=== PATIENT | male | born 1990 | race African-American/Black ===

== ENCOUNTER 2020-09-14 10:45 | Emergency (ER) | payer MEDICAID, OTHER ==
[~2020-09-14] VITALS: Ht 172.7 cm; Wt 104.8 kg
--- NOTE | 2020-09-14 11:09 | NUR ---
PT WALKED BACK FROM TRIAGE WITH CHIEF COMPLAINT OF "DRANK TOO MUCH AND I NEED AN IV"
[2020-09-14] MEDS ORDERED: ONDANSETRON 2MG/ML, 2ML ONE (11:23)
[2020-09-14] MEDS ORDERED: FAMOTIDINE 20 MG/2 ML ONE (11:23)
[2020-09-14] MEDS ORDERED: KETOROLAC 30 MG/1 ML ONE (11:23)
[2020-09-14] MEDS ORDERED: ONDANSETRON 2MG/ML, 2ML IVPush ONE (11:30)
[2020-09-14] MEDS ORDERED: SODIUM CHLORIDE 0.9% 1,000ML IVBOLUS ONE (11:30)
[2020-09-14] MEDS ORDERED: SODIUM CHLORIDE FLUSH 10ML SYR IVF ONE (11:30)
[2020-09-14] MEDS ORDERED: KETOROLAC 30 MG/1 ML IVPush ONE (11:30)
[2020-09-14] MEDS ORDERED: FAMOTIDINE 20 MG/2 ML IVPush ONE (11:30)
[2020-09-14 11:32] VITALS: BP 146/75
[2020-09-14 11:33] LABS: ALBUMIN 4.1 g/dL (3.4-5.0); ANION GAP 11 mmol/L (5-15); CALCIUM 8.9 mg/dL (8.5-10.1); CHLORIDE 108 mmol/L (98-107)
[2020-09-14 11:34] LABS: BASOPHILS % (AUTO) 1 % (0-1); EOSINOPHILS % (AUTO) 1 % (1-7); LYMPHOCYTES % (AUTO) 27 % (22-44); MEAN CORPUSCULAR HEMOGLOBIN 28.3 pg (27.5-34.5); MEAN CORPUSCULAR HGB CONC 33.7 g/dL (33.2-36.2); MEAN PLATELET VOLUME 7.6 fL (7.4-10.4); MONOCYTES % (AUTO) 8 % (2-9); NEUTROPHILS % (AUTO) 64 % (42-75); PLATELET COUNT 319 x10^3/uL (130-400); RED BLOOD COUNT 5.12 x10^6/uL (4.38-5.82); RED CELL DISTRIBUTION WIDTH 13.5 % (9.4-14.8)
[2020-09-14 11:36] LABS: ALANINE AMINOTRANSFERASE 41 U/L (12-78); ALKALINE PHOSPHATASE 70 U/L (45-117); BILIRUBIN,TOTAL 0.5 mg/dL (0.2-1.0); CREATININE 1.01 mg/dL (0.7-1.3); TOTAL PROTEIN 7.8 g/dL (6.4-8.2)
[2020-09-14] MEDS ORDERED: MAALOX/HYOSCYAMINE/LIDOCAINE 45 ML BTL ONE (11:55)
--- NOTE | 2020-09-14 11:56 | NUR ---
CLAU URBAN AT BEDSIDE FOR EVAL.
[2020-09-14] MEDS ORDERED: MAALOX/HYOSCYAMINE/LIDOCAINE 45 ML BTL PO ONE (12:00)
== END 2020-09-14 12:22 | disposition home or self-care (01) ==
LOC: ED 11:57
DX: K29.20 Alcoholic gastritis without bleeding (principal); F10.120 Alcohol abuse with intoxication, uncomplicated; R11.2 Nausea with vomiting, unspecified; Y90.0 Blood alcohol level of less than 20 mg/100 ml
CPT/HCPCS: 36415; 80053; 85025; 96361; 96374; 96375; 99284; J1885; J2405; J7030